=== PATIENT | male | born 1955 | race Caucasian/White ===

== ENCOUNTER 2018-06-24 10:53 | Emergency (ER) | payer MEDICAID ==
[~2018-06-24] VITALS: Ht 172.7 cm; Wt 102.5 kg
[2018-06-24 10:53] VITALS: BP_SYST 127
[2018-06-24] MEDS ORDERED: IPRATROPIUM/ALBUTEROL SULFATE 3 ML AMPUL.NEB (DUONEB) INH STA (11:04)
[2018-06-24] MEDS ORDERED: ALBUTEROL SULFATE 0.083% 2.5 MG/3 ML VIAL.NEB INH ONE (11:15)
[2018-06-24] MEDS ORDERED: ALBUTEROL SULFATE 0.083% 2.5 MG/3 ML VIAL.NEB INH SCH (11:15)
[2018-06-24] MEDS ORDERED: LEVOFLOXACIN 500 MG/D5W 100 ML IV ONE (11:15)
[2018-06-24 11:29] LABS: BASOPHILS # (AUTO) 0.1 K/uL (0.0-0.2); BASOPHILS % (AUTO) 0.6 % (0.0-2.0); EOSINOPHILS # (AUTO) 1.2 K/uL (0.0-0.4); EOSINOPHILS % (AUTO) 8.3 % (0.0-4.0); HEMATOCRIT 45.8 % (36-54); HEMOGLOBIN 15.2 g/dL (14.0-18.0); LYMPHOCYTES # (AUTO) 2.3 K/uL (1.0-5.5); LYMPHOCYTES % (AUTO) 15.8 % (20.5-51.5); MEAN CORPUSCULAR HEMOGLOBIN 29 pg (27-31); MEAN CORPUSCULAR HGB CONC 33 % (32-36); MEAN CORPUSCULAR VOLUME 88 fL (79.0-98.0); MONOCYTES # (AUTO) 1.2 K/uL (0.0-1.0); MONOCYTES % (AUTO) 8.1 % (1.7-9.3); NEUTROPHILS # (AUTO) 9.5 K/uL (1.8-7.7); NEUTROPHILS % (AUTO) 67.2 % (40.0-70.0); PLATELET COUNT (AUTO) 337 K/uL (130-430); RED BLOOD CELL COUNT(AUTO) 5.18 MIL/uL (4.2-6.2); RED CELL DISTRIBUTION WIDTH 14.6 % (9.0-15.0); WHITE BLOOD COUNT (AUTO) 14.3 K/uL (4.8-10.8)
[2018-06-24 11:48] LABS: CALCIUM 9.3 mg/dL (8.4-11.0); POTASSIUM 4.2 mmol/L (3.5-5.1)
[2018-06-24 11:54] LABS: ALBUMIN 3.4 g/dL (3.4-4.8); TOTAL BILIRUBIN 0.5 mg/dL (0.0-1.0)
[2018-06-24 11:58] LABS: INR 0.9 (0.80-1.20); PROTHROMBIN TIME 9.7 SECS (9.5-12.5)
[2018-06-24] MEDS ORDERED: methylPREDNISolone SOD SUCC/PF 62.5 MG/ML VIAL IVP ONE (12:15)
[2018-06-24 13:18] VITALS: BP_SYST 104
== END 2018-06-24 13:17 | disposition home or self-care (01) ==
LOC: SED 10:53
DX: J44.9 Chronic obstructive pulmonary disease, unspecified (principal); I10 Essential (primary) hypertension; F17.200 Nicotine dependence, unspecified, uncomplicated; Z86.79 Personal history of other diseases of the circulatory system
CPT/HCPCS: 36415; 71045; 80053; 83605; 83880; 84484; 85025; 85610; 86710; 87040; 93005; 94640; 96365; 96375; 99284; J1956; J2930; J7613

== ENCOUNTER 2018-09-13 00:44 | Emergency (ER) | payer MEDICAID ==
[~2018-09-13] VITALS: Ht 175.3 cm; Wt 90.7 kg
[2018-09-13 00:45] VITALS: BP_SYST 129
--- NOTE | 2018-09-13 00:45 | NUR ---
Placed in room 8 . Placed on monitoring specialist, blood pressure machine and pulse oximeter.
--- NOTE | 2018-09-13 00:45 | NUR ---
Patient to ER via triage for evaluation of SOB, patient denies CP. Patient is awake, alert and oriented in mild to moderate distress, patient able to ambulate to bed 8 without difficulty with slow, steady gait. Patient placed on morgue technician which shows sinus rhythm without ectopy, patient on BP monitor and pulse oximeter. Awaiting evaluation by ER MD, will continue to observe and assess.
--- NOTE | 2018-09-13 00:47 | NUR ---
JEROME Mccall at bedside examining patient.
[2018-09-13] MEDS ORDERED: IPRATROPIUM/ALBUTEROL SULFATE 3 ML AMPUL.NEB (DUONEB) INH ONE (01:00)
[2018-09-13] MEDS ORDERED: methylPREDNISolone SOD SUCC/PF 62.5 MG/ML VIAL IM ONE (01:00)
--- NOTE | 2018-09-13 01:14 | NUR ---
X-ray at bedside for films
[2018-09-13] MEDS ORDERED: BUDESONIDE 0.5 MG/2 ML AMPUL.NEB INH ONE (01:15)
[2018-09-13 01:32] LABS: CALCIUM 8.9 mg/dL (8.4-11.0); CREATININE 0.92 mg/dL (0.55-1.30)
[2018-09-13 01:37] LABS: ALBUMIN 3.6 g/dL (3.4-4.8); TOTAL BILIRUBIN 0.3 mg/dL (0.0-1.0)
--- NOTE | 2018-09-13 01:45 | NUR ---
Patient resting quietly in no acute distress, respirations even and unlabored, skin warm and dry to touch. Patient reports that breathing is easier after treatments.
[2018-09-13 01:49] LABS: HEMATOCRIT 47.9 % (36-54); HEMOGLOBIN 15.8 g/dL (14.0-18.0); LYMPHOCYTES % (AUTO) 17.3 % (20.5-51.5); MEAN CORPUSCULAR HEMOGLOBIN 28 pg (27-31); MEAN CORPUSCULAR HGB CONC 33 % (32-36); MEAN CORPUSCULAR VOLUME 85 fL (79.0-98.0); NEUTROPHILS % (AUTO) 57.4 % (40.0-70.0); PLATELET COUNT (AUTO) 340 K/uL (130-430); RED BLOOD CELL COUNT(AUTO) 5.65 MIL/uL (4.2-6.2); RED CELL DISTRIBUTION WIDTH 15.8 % (9.0-15.0); WHITE BLOOD COUNT (AUTO) 12.9 K/uL (4.8-10.8)
[2018-09-13 01:50] LABS: BASOPHILS # (AUTO) 0.1 K/uL (0.0-0.2); BASOPHILS % (AUTO) 0.8 % (0.0-2.0); EOSINOPHILS # (AUTO) 2.2 K/uL (0.0-0.4); EOSINOPHILS % (AUTO) 17.1 % (0.0-4.0); LYMPHOCYTES # (AUTO) 2.2 K/uL (1.0-5.5); MONOCYTES % (AUTO) 7.4 % (1.7-9.3); NEUTROPHILS # (AUTO) 7.4 K/uL (1.8-7.7)
[2018-09-13] MEDS ORDERED: LEVOFLOXACIN 500 MG TABLET PO ONE (02:00)
--- NOTE | 2018-09-13 02:23 | NUR ---
Patient given written and verbal discharge instructions and verbalizes understanding. ER MD discussed with patient the results and treatment provided. Patient in stable condition. ID arm band removed. IV catheter removed intact and dressing applied, no active bleeding. Rx of Prednisone,Levaquin given. Patient educated on pain management and to follow up with PMD. Pain Scale 0/10. Opportunity for questions provided and answered. Medication side effect fact sheet provided.
[2018-09-13 02:24] VITALS: BP_SYST 129
== END 2018-09-13 02:24 | disposition home or self-care (01) ==
LOC: SED 00:44
DX: J44.1 Chronic obstructive pulmonary disease with (acute) exacerbation (principal); F17.210 Nicotine dependence, cigarettes, uncomplicated; I10 Essential (primary) hypertension
CPT/HCPCS: 36415; 71045; 80053; 83880; 85025; 93005; 94640; 96372; 99284; J2930; J7620; J7626

== ENCOUNTER 2018-10-11 14:17 | Inpatient (IN) | payer MEDICAID ==
[~2018-10-11] VITALS: Ht 172.7 cm; Wt 106.6 kg
[2018-10-11 14:32] VITALS: BP_SYST 112
[2018-10-11 14:56] LABS: HEMOGLOBIN 15.7 g/dL (14.0-18.0); MEAN CORPUSCULAR HEMOGLOBIN 28 pg (27-31); MEAN CORPUSCULAR HGB CONC 34 % (32-36); MEAN CORPUSCULAR VOLUME 84 fL (79.0-98.0); PLATELET COUNT (AUTO) 395 K/uL (130-430); RED CELL DISTRIBUTION WIDTH 16.3 % (9.0-15.0)
[2018-10-11 14:57] LABS: BASOPHILS # (AUTO) 0.1 K/uL (0.0-0.2); BASOPHILS % (AUTO) 0.9 % (0.0-2.0); EOSINOPHILS # (AUTO) 1.2 K/uL (0.0-0.4); EOSINOPHILS % (AUTO) 9.6 % (0.0-4.0); LYMPHOCYTES # (AUTO) 2.1 K/uL (1.0-5.5); LYMPHOCYTES % (AUTO) 17.3 % (20.5-51.5); MONOCYTES % (AUTO) 8.2 % (1.7-9.3); NEUTROPHILS # (AUTO) 7.7 K/uL (1.8-7.7)
[2018-10-11 15:10] LABS: INR 0.9 (0.80-1.20); PROTHROMBIN TIME 9.5 SECS (9.5-12.5)
[2018-10-11 15:11] LABS: CALCIUM 9.6 mg/dL (8.4-11.0); CREATININE 0.83 mg/dL (0.55-1.30); POTASSIUM 3.7 mmol/L (3.5-5.1)
[2018-10-11 15:16] LABS: ALBUMIN 3.8 g/dL (3.4-4.8); TOTAL BILIRUBIN 0.5 mg/dL (0.0-1.0)
[2018-10-11] MEDS ORDERED: cefTRIAXone 1 GM IVPB PREMIX 50 ML IV ONE (15:45)
[2018-10-11] MEDS ORDERED: IOHEXOL 350 mgI/mL, 150 ML INFUS..BTL IV ONE (16:11)
[2018-10-11] MEDS ORDERED: SODIUM CHLORIDE 500 MG TABLET PO ONE (16:45)
[2018-10-11] MEDS ORDERED: IPRATROPIUM/ALBUTEROL SULFATE 3 ML AMPUL.NEB (DUONEB) INH ONE (17:15)
[2018-10-11 20:39] VITALS: BP_SYST 115
[2018-10-11] MEDS ORDERED: SIMV20TA2 PO (20:47)
[2018-10-11] MEDS ORDERED: FURO20TA4 PO (20:47)
[2018-10-11] MEDS ORDERED: FURO-150 PO (20:47)
[2018-10-11] MEDS ORDERED: ENAL10TA PO (20:47)
[2018-10-11] MEDS ORDERED: CARV25TA55 PO (20:47)
[2018-10-11] MEDS ORDERED: POTA20TA83 PO (20:47)
[2018-10-11] MEDS ORDERED: HYDROcodone/ACETAMIN 5-325 MG TAB (NORCO/ VICODIN) PO PRN (22:00)
[2018-10-11] MEDS ORDERED: HYDROcodone/ACETAMIN 10-325 MG TAB PO PRN (22:00)
[2018-10-11] MEDS ORDERED: cefTRIAXone 1 GM in D5W 50 ML IV SCH (22:00)
[2018-10-11] MEDS ORDERED: ONDANSETRON HCL 4 MG/2 ML VIAL IVP PRN (22:00)
[2018-10-11] MEDS ORDERED: ACETAMINOPHEN 325 MG TABLET PO PRN (22:00)
[2018-10-11] MEDS: D5NS 1,000 ML IV SCH (23:07)
[2018-10-12] MEDS: LORazepam 2 MG/ML VIAL IVP PRN ×2 (00:55→20:45)
[2018-10-12 01:14] VITALS: BP_SYST 134
[2018-10-12] MEDS: IPRATROPIUM/ALBUTEROL SULFATE 3 ML AMPUL.NEB (DUONEB) INH PRN (04:18)
[2018-10-12 04:38] VITALS: BP_SYST 134
[2018-10-12 05:08] LABS: BILIRUBIN,URINE NEGATIVE (NEGATIVE); BLOOD, URINE NEGATIVE (NEGATIVE); CLARITY/URINE CLEAR (CLEAR); COLOR,URINE YELLOW (YELLOW); GLUCOSE,URINE NEGATIVE (NEGATIVE); KETONES,URINE NEGATIVE (NEGATIVE); LEUKOCYTE ESTERASE ,URINE NEGATIVE (NEGATIVE); NITRITE, URINE NEGATIVE (NEGATIVE); PROTEIN URINE TRACE (NEGATIVE)
[2018-10-12 07:21] LABS: CALCIUM 9.2 mg/dL (8.4-11.0); CREATININE 0.75 mg/dL (0.55-1.30)
[2018-10-12 07:36] LABS: ALBUMIN 3.4 g/dL (3.4-4.8); PHOSPHORUS 3.1 mg/dL (2.7-4.5); TOTAL BILIRUBIN 0.5 mg/dL (0.0-1.0)
[2018-10-12 07:57] VITALS: BP_SYST 124
[2018-10-12 08:27] LABS: WHITE BLOOD COUNT (AUTO) 10.2 K/uL (4.8-10.8)
[2018-10-12 08:28] LABS: BASOPHILS # (AUTO) 0.1 K/uL (0.0-0.2); BASOPHILS % (AUTO) 1.2 % (0.0-2.0); HEMATOCRIT 44.6 % (36-54); LYMPHOCYTES # (AUTO) 1.7 K/uL (1.0-5.5); LYMPHOCYTES % (AUTO) 16.7 % (20.5-51.5); MEAN CORPUSCULAR HEMOGLOBIN 28 pg (27-31); MEAN CORPUSCULAR HGB CONC 34 % (32-36); MEAN CORPUSCULAR VOLUME 84 fL (79.0-98.0); MONOCYTES % (AUTO) 9.6 % (1.7-9.3); NEUTROPHILS # (AUTO) 6.3 K/uL (1.8-7.7); NEUTROPHILS % (AUTO) 62.5 % (40.0-70.0); PLATELET COUNT (AUTO) 327 K/uL (130-430); RED BLOOD CELL COUNT(AUTO) 5.29 MIL/uL (4.2-6.2); RED CELL DISTRIBUTION WIDTH 16.4 % (9.0-15.0)
[2018-10-12] MEDS: FUROSEMIDE 20 MG TABLET PO SCH (08:39)
[2018-10-12] MEDS: POTASSIUM CHLORIDE 20 MEQ TAB.PRT.SR PO SCH ×2 (08:39→20:44)
[2018-10-12] MEDS: ENALAPRIL MALEATE 10 MG TABLET (VASOTEC) PO SCH ×2 (08:40→20:44)
[2018-10-12] MEDS: CARVEDILOL 25 MG TABLET (COREG) PO SCH ×2 (08:40→20:44)
[2018-10-12] MEDS: methylPREDNISolone SOD SUCC 40 MG/ML VIAL IVP SCH ×2 (08:41→20:43)
[2018-10-12] MEDS: cefTRIAXone 1 GM in D5W 50 ML IV SCH (08:41)
[2018-10-12] MEDS: D5NS 1,000 ML IV SCH ×2 (08:56→20:43)
[2018-10-12 12:09] VITALS: BP_SYST 124
[2018-10-12] MEDS: AZITHROMYCIN 500 MG in NS 250 ML IV SCH (12:17)
[2018-10-12] MEDS ORDERED: IOHEXOL 350 mgI/mL, 150 ML INFUS..BTL IV ONE (14:15)
[2018-10-12 16:34] VITALS: BP_SYST 117
[2018-10-12] MEDS ORDERED: FUROSEMIDE 20 MG TABLET PO SCH (18:00)
[2018-10-12 20:00] VITALS: BP_SYST 111
[2018-10-12] MEDS ORDERED: SIMVASTATIN 20 MG TABLET PO SCH (21:00)
[2018-10-13] VITALS: BP_SYST 118
[2018-10-13 07:14] VITALS: BP_SYST 112
[2018-10-13] MEDS: IPRATROPIUM/ALBUTEROL SULFATE 3 ML AMPUL.NEB (DUONEB) INH PRN (07:29)
[2018-10-13 08:18] LABS: C-REACTIVE PROTEIN QUANT 1.4 mg/dL (0-0.5); CREATININE 0.82 mg/dL (0.55-1.30); POTASSIUM 4.3 mmol/L (3.5-5.1)
[2018-10-13] MEDS: CARVEDILOL 25 MG TABLET (COREG) PO SCH (09:02)
[2018-10-13] MEDS: FUROSEMIDE 20 MG TABLET PO SCH (09:04)
[2018-10-13] MEDS: ENALAPRIL MALEATE 10 MG TABLET (VASOTEC) PO SCH (09:05)
[2018-10-13] MEDS: POTASSIUM CHLORIDE 20 MEQ TAB.PRT.SR PO SCH (09:05)
[2018-10-13] MEDS: methylPREDNISolone SOD SUCC 40 MG/ML VIAL IVP SCH (09:12)
[2018-10-13] MEDS: AZITHROMYCIN 500 MG in NS 250 ML IV SCH (09:12)
[2018-10-13] MEDS: cefTRIAXone 1 GM in D5W 50 ML IV SCH (09:12)
[2018-10-13 10:57] LABS: HEMATOCRIT 44.3 % (36-54); HEMOGLOBIN 14.5 g/dL (14.0-18.0); MEAN CORPUSCULAR HEMOGLOBIN 28 pg (27-31); MEAN CORPUSCULAR HGB CONC 33 % (32-36); MEAN CORPUSCULAR VOLUME 85 fL (79.0-98.0); PLATELET COUNT (AUTO) 352 K/uL (130-430); RED BLOOD CELL COUNT(AUTO) 5.21 MIL/uL (4.2-6.2); RED CELL DISTRIBUTION WIDTH 16.4 % (9.0-15.0); WHITE BLOOD COUNT (AUTO) 15.7 K/uL (4.8-10.8)
[2018-10-13 10:58] LABS: BASOPHILS % (AUTO) 0.1 % (0.0-2.0); LYMPHOCYTES # (AUTO) 0.9 K/uL (1.0-5.5); LYMPHOCYTES % (AUTO) 5.8 % (20.5-51.5); MONOCYTES # (AUTO) 0.8 K/uL (0.0-1.0); MONOCYTES % (AUTO) 4.9 % (1.7-9.3); NEUTROPHILS % (AUTO) 89.2 % (40.0-70.0)
[2018-10-13 11:21] VITALS: BP_SYST 125
[2018-10-13 11:27] VITALS: BP_SYST 112
[2018-10-13 11:36] LABS: ERYTHROCYTE SEDIMENTATION RATE 7 MM/HR (0-15)
[2018-10-13] MEDS ORDERED: AZIT500T3 PO (13:44)
[2018-10-13 14:04] VITALS: BP_SYST 114
[2018-10-13] MEDS ORDERED: PRED20TA PO (14:11)
[2018-10-13] MEDS ORDERED: PRED10TA PO (14:12)
== END 2018-10-13 14:00 | disposition home or self-care (01) | DRG 133 ==
LOC: SED 14:17 → STU 19:29
PROVIDERS: ADMIT Preventive Medicine Preventive Medicine/Occupational Environmental Medicine; ATTEND Preventive Medicine Preventive Medicine/Occupational Environmental Medicine
DX: J96.00 Acute respiratory failure, unspecified whether with hypoxia or hypercapnia (principal); J18.9 Pneumonia, unspecified organism; I11.0 Hypertensive heart disease with heart failure; I50.9 Heart failure, unspecified; E87.1 Hypo-osmolality and hyponatremia; J44.0 Chronic obstructive pulmonary disease with (acute) lower respiratory infection; R16.0 Hepatomegaly, not elsewhere classified; R65.10 Systemic inflammatory response syndrome (SIRS) of non-infectious origin without acute organ dysfunction; E78.5 Hyperlipidemia, unspecified; I25.10 Atherosclerotic heart disease of native coronary artery without angina pectoris; J44.1 Chronic obstructive pulmonary disease with (acute) exacerbation; K80.20 Calculus of gallbladder without cholecystitis without obstruction; E66.9 Obesity, unspecified; T38.0X5A Adverse effect of glucocorticoids and synthetic analogues, initial encounter; Z82.49 Family history of ischemic heart disease and other diseases of the circulatory system; Z87.891 Personal history of nicotine dependence; Z68.35 Body mass index [BMI] 35.0-35.9, adult
CPT/HCPCS: 36415; 71045; 71275; 76700-TC; 80048; 80053; 81003; 82550-TC; 83735-TC; 83880; 84100-TC; 84484; 85025; 85379; 85610-TC; 85651-TC; 86140; 86738; 87040-TC; 87086; 87449; 93005; 94640; 94760; 96365; 99285; G0378; J0456; J0696; J1030; J2060; J7042; J7050; J7060; J7620; Q9967

== ENCOUNTER 2019-04-05 00:14 | Emergency (ER) | payer MEDICAID ==
[~2019-04-05] VITALS: Ht 172.7 cm; Wt 97.5 kg
[~2019-04-05 00:14] MED LIST: AZIT500T3 PO; CARV25TA55 PO; ENAL10TA PO; FURO-150 PO; FURO20TA4 PO; POTA20TA83 PO; PRED10TA PO; PRED20TA PO; SIMV20TA2 PO
[2019-04-05 00:16] VITALS: BP_SYST 106
--- NOTE | 2019-04-05 00:17 | NUR ---
Placed in room 3 . Placed on quantitative researcher, blood pressure machine and pulse oximeter. To gown for exam. Side rails up. Report given to [facility] [employer].
--- NOTE | 2019-04-05 00:25 | NUR ---
Dr. Rock at bedside for Pt eval
--- NOTE | 2019-04-05 00:35 | NUR ---
Pt BIB family to ED C/O shortness of breath. Pt has been short of breath for the past 24 hours. He also has a cough or congestion. He denies any pleuritic chest pain. Pt states that his cough is dry. He has a history of congestive heart failure and COPD. Pt has no abdominal pain, nausea, vomiting or diarrhea. He states that his shortness of breath is getting progressively worse. No other injuries and or complaints noted. VSS no s/s of acute distress. Resting on gurney rails up
--- NOTE | 2019-04-05 00:39 | NUR ---
Portable X Ray bedside, well tolerated
[2019-04-05] MEDS ORDERED: FUROSEMIDE 40 MG/4 ML VIAL IVP ONE (00:45)
[2019-04-05] MEDS ORDERED: IPRATROPIUM/ALBUTEROL SULFATE 3 ML AMPUL.NEB (DUONEB) INH ONE (00:45)
[2019-04-05] MEDS ORDERED: VANCOMYCIN HCL 1,000 MG in NS 250 ML IV ONE (00:45)
[2019-04-05] MEDS ORDERED: methylPREDNISolone SOD SUCC/PF 62.5 MG/ML VIAL IVP ONE (00:45)
[2019-04-05] MEDS ORDERED: LEVOFLOXACIN 500 MG/D5W 100 ML IV ONE (00:45)
[2019-04-05] MEDS ORDERED: MAGNESIUM SULFATE 1 GM in NS 100 ML IV ONE (00:45)
--- NOTE | 2019-04-05 00:51 | NUR ---
RT bedside for ABG blood draw
[2019-04-05] MEDS ORDERED: VANCOMYCIN HCL 1000 MG/VIAL IV ONE (01:08)
[2019-04-05] MEDS ORDERED: MAGNESIUM SULFATE 1 GM/2 ML VIAL ONE (01:09)
[2019-04-05 01:13] LABS: BASOPHILS # (AUTO) 0.1 K/uL (0.0-0.2); BASOPHILS % (AUTO) 0.4 % (0.0-2.0); EOSINOPHILS # (AUTO) 0.7 K/uL (0.0-0.4); EOSINOPHILS % (AUTO) 4.3 % (0.0-4.0); HEMATOCRIT 41.1 % (36-54); HEMOGLOBIN 14.1 g/dL (14.0-18.0); LYMPHOCYTES # (AUTO) 1.5 K/uL (1.0-5.5); LYMPHOCYTES % (AUTO) 9.2 % (20.5-51.5); MEAN CORPUSCULAR HEMOGLOBIN 30 pg (27-31); MEAN CORPUSCULAR HGB CONC 34 % (32-36); MEAN CORPUSCULAR VOLUME 86 fL (79.0-98.0); MONOCYTES # (AUTO) 1.9 K/uL (0.0-1.0); MONOCYTES % (AUTO) 11.8 % (1.7-9.3); NEUTROPHILS % (AUTO) 74.3 % (40.0-70.0); PLATELET COUNT (AUTO) 340 K/uL (130-430); RED BLOOD CELL COUNT(AUTO) 4.76 MIL/uL (4.2-6.2); RED CELL DISTRIBUTION WIDTH 15.1 % (9.0-15.0); WHITE BLOOD COUNT (AUTO) 16.2 K/uL (4.8-10.8)
--- NOTE | 2019-04-05 01:29 | NUR ---
Medication reconciliation completed with information provided by PT. Any prior medication reconciliation on file was reviewed and corrected.
[2019-04-05 01:31] LABS: ALBUMIN 3.1 g/dL (3.4-4.8); CREATININE 0.95 mg/dL (0.55-1.30); POTASSIUM 3.8 mmol/L (3.5-5.1); TOTAL BILIRUBIN 0.5 mg/dL (0.0-1.0)
[2019-04-05 01:32] LABS: CALCIUM 8.4 mg/dL (8.4-11.0)
--- NOTE | 2019-04-05 02:30 | NUR ---
Patient does not wish to proceed with medical care recommended by . Patient given information related to possible complications, up to and including , which could occur as a result of leaving hospital at this time. Patient verbalizes understanding of risks involved leaving against medical advice. Patient has signed AMA form.
== END 2019-04-05 02:30 | disposition left against medical advice (07) ==
LOC: SED 00:14
DX: A41.9 Sepsis, unspecified organism (principal); I11.0 Hypertensive heart disease with heart failure; I50.9 Heart failure, unspecified; J44.1 Chronic obstructive pulmonary disease with (acute) exacerbation; J18.9 Pneumonia, unspecified organism; Z79.899 Other long term (current) drug therapy
CPT/HCPCS: 36415; 36600; 71045; 80053; 82550; 82803; 83605; 83880; 84484; 85025; 87040; 93005; 94640; 96365; 96368; 96375; 99291; J1940; J1956; J2930; J3370; J3475; J7620

== ENCOUNTER 2019-09-24 15:18 | Inpatient (IN) | payer MEDICAID ==
[~2019-09-24] VITALS: Ht 172.7 cm; Wt 99.3 kg
[~2019-09-24 15:18] MED LIST changes: -AZIT500T3 PO; -PRED10TA PO
[2019-09-24 15:28] VITALS: BP_SYST 141
[2019-09-24] MEDS ORDERED: NACL 0.9% 1,000 ML IV ONE (15:38)
[2019-09-24] MEDS ORDERED: ASPIRIN 81 MG TAB.CHEW PO ONE (15:45)
[2019-09-24 16:29] LABS: BASOPHILS # (AUTO) 0.1 K/uL (0.0-0.2); BASOPHILS % (AUTO) 0.8 % (0.0-2.0); EOSINOPHILS # (AUTO) 0.8 K/uL (0.0-0.4); EOSINOPHILS % (AUTO) 5.2 % (0.0-4.0); HEMATOCRIT 46.8 % (36-54); HEMOGLOBIN 15.5 g/dL (14.0-18.0); LYMPHOCYTES # (AUTO) 1.8 K/uL (1.0-5.5); LYMPHOCYTES % (AUTO) 12.5 % (20.5-51.5); MEAN CORPUSCULAR HEMOGLOBIN 28 pg (27-31); MEAN CORPUSCULAR HGB CONC 33 % (32-36); MEAN CORPUSCULAR VOLUME 85 fL (79.0-98.0); MONOCYTES # (AUTO) 1.2 K/uL (0.0-1.0); MONOCYTES % (AUTO) 8.2 % (1.7-9.3); NEUTROPHILS # (AUTO) 10.7 K/uL (1.8-7.7); NEUTROPHILS % (AUTO) 73.3 % (40.0-70.0); PLATELET COUNT (AUTO) 300 K/uL (130-430); RED BLOOD CELL COUNT(AUTO) 5.49 MIL/uL (4.2-6.2); RED CELL DISTRIBUTION WIDTH 15.7 % (9.0-15.0); WHITE BLOOD COUNT (AUTO) 14.6 K/uL (4.8-10.8)
[2019-09-24 16:39] LABS: ANION GAP 5 (5-15); CALCIUM 9.4 mg/dL (8.4-11.0); CHLORIDE 88 mmol/L (98-107); CREATININE 0.79 mg/dL (0.55-1.30); GLUCOSE 101 mg/dL (70-99); SODIUM SERUM 122 mmol/L (136-145); UREA NITROGEN, BLOOD 12 mg/dL (8-21)
[2019-09-24 16:40] LABS: GFR AFRICAN AMERICAN 128 mL/min (>90)
[2019-09-24 16:46] LABS: ALANINE AMINOTRANSFERASE 38 U/L (12-78); ALBUMIN 3.7 g/dL (3.4-4.8); AMYLASE 48 U/L (0-100); ASPARTATE AMINOTRANSFERASE 21 U/L (10-37); CHOLESTEROL 109 mg/dL (<200); HDL CHOLESTEROL 39 mg/dL (>45); LDL CHOLESTEROL 60 mg/dL (<100); LIPASE 74 U/L (73-393); TOTAL BILIRUBIN 0.7 mg/dL (0.0-1.0); TRIGLYCERIDES 81 mg/dL (30-150)
[2019-09-24 16:48] LABS: ALCOHOL, BLOOD < 3 mg/dL (<10)
[2019-09-24 18:07] LABS: CHOL/HDL RATIO 2.8 (>4.5)
[2019-09-24 18:25] LABS: BILIRUBIN,URINE NEGATIVE (NEGATIVE); BLOOD, URINE NEGATIVE (NEGATIVE); CLARITY/URINE CLEAR (CLEAR); COLOR,URINE YELLOW (YELLOW); GLUCOSE,URINE NEGATIVE (NEGATIVE); KETONES,URINE NEGATIVE (NEGATIVE); LEUKOCYTE ESTERASE ,URINE NEGATIVE (NEGATIVE); NITRITE, URINE NEGATIVE (NEGATIVE); PROTEIN URINE TRACE (NEGATIVE); UROBILINOGEN,URINE 0.2 (0.2-1.0)
[2019-09-24 18:34] LABS: BARBITURATE, URINE NEGATIVE (NEG <=200); BENZODIAZEPINE, URINE NEGATIVE (NEG <=150); CANNABINOID, URINE POSITIVE (NEG <=50); COCAINE, URINE NEGATIVE (NEG <=150); METHAMPHETAMINES SCREEN,URINE NEGATIVE (NEG <=500); OPIATE, URINE NEGATIVE (NEG <=100); PHENCYCLIDINE SCREEN,URINE NEGATIVE (NEG <=25); UR TRICYCLIC ANTIDEPRESSANTS NEGATIVE (NEG <=300); URINE AMPHETAMINE NEGATIVE (NEG <=500); URINE METHADONE NEGATIVE (NEG <=200); URINE OXYCODONE SCREEN NEGATIVE (NEG <=100); URINE PROPOXYPHENE SCREEN NEGATIVE (NEG <=300)
[2019-09-24 18:45] LABS: RBC,URINE NONE SEEN /HPF (0-3); WBC,URINE 0-3 /HPF (0-3)
[2019-09-24 18:46] LABS: BACTERIA,URINE None Seen /HPF (None Seen); MUCUS,URINE None Seen /LPF (None Seen)
[2019-09-24 21:32] VITALS: BP_SYST 139
[2019-09-24] MEDS ORDERED: ONDANSETRON HCL 4 MG/2 ML VIAL IVP PRN (23:15)
[2019-09-24] MEDS ORDERED: ACETAMINOPHEN 325 MG TABLET PO PRN (23:15)
[2019-09-24] MEDS ORDERED: cefTRIAXone 1 GM IVPB PREMIX 50 ML IV ONE (23:30)
[2019-09-24] MEDS ORDERED: ASPIRIN 325 MG TABLET PO ONE (23:30)
[2019-09-25] VITALS: BP_SYST 135
[2019-09-25] MEDS: ALBUTEROL SULFATE 0.083% 2.5 MG/3 ML VIAL.NEB INH PRN ×2 (00:14→04:45)
[2019-09-25 00:15] VITALS: BP_SYST 135
[2019-09-25] MEDS ORDERED: IOHEXOL 350 mgI/mL, 150 ML INFUS..BTL IV ONE (00:18)
[2019-09-25] MEDS ORDERED: cefTRIAXone 1 GM IVPB PREMIX 50 ML IV ONE (00:21)
[2019-09-25] MEDS: NACL 0.9% 1,000 ML IV SCH ×3 (01:05→22:23)
[2019-09-25] MEDS: MORPHINE 2 MG/ML INJ. SYRINGE IVP PRN (01:07)
[2019-09-25] MEDS: MORPHINE 4 MG/ML INJ. SYRINGE IVP PRN (05:22)
[2019-09-25 06:36] LABS: BASOPHILS # (AUTO) 0.1 K/uL (0.0-0.2); BASOPHILS % (AUTO) 0.5 % (0.0-2.0); EOSINOPHILS # (AUTO) 0.4 K/uL (0.0-0.4); EOSINOPHILS % (AUTO) 3.2 % (0.0-4.0); HEMATOCRIT 45.7 % (36-54); HEMOGLOBIN 14.9 g/dL (14.0-18.0); LYMPHOCYTES # (AUTO) 1.5 K/uL (1.0-5.5); MEAN CORPUSCULAR HEMOGLOBIN 28 pg (27-31); MEAN CORPUSCULAR HGB CONC 33 % (32-36); MEAN CORPUSCULAR VOLUME 85 fL (79.0-98.0); MONOCYTES # (AUTO) 1.1 K/uL (0.0-1.0); MONOCYTES % (AUTO) 8.2 % (1.7-9.3); NEUTROPHILS # (AUTO) 10.6 K/uL (1.8-7.7); NEUTROPHILS % (AUTO) 77.1 % (40.0-70.0); PLATELET COUNT (AUTO) 275 K/uL (130-430); RED BLOOD CELL COUNT(AUTO) 5.35 MIL/uL (4.2-6.2); RED CELL DISTRIBUTION WIDTH 15.2 % (9.0-15.0); WHITE BLOOD COUNT (AUTO) 13.8 K/uL (4.8-10.8)
[2019-09-25 06:43] LABS: ALBUMIN 3.5 g/dL (3.4-4.8); CALCIUM 9.2 mg/dL (8.4-11.0); CREATININE 0.67 mg/dL (0.55-1.30); POTASSIUM 3.6 mmol/L (3.5-5.1); TOTAL BILIRUBIN 0.9 mg/dL (0.0-1.0)
[2019-09-25 08:00] VITALS: BP_SYST 135
[2019-09-25] MEDS: ASPIRIN 325 MG TABLET PO SCH (08:20)
[2019-09-25 12:00] VITALS: BP_SYST 156
[2019-09-25] MEDS ORDERED: ENALAPRIL MALEATE (VASOTEC) Non-Formular 10 MG TABLET PO ONE (13:15)
[2019-09-25] MEDS ORDERED: PREDNISONE 20 MG TABLET PO ONE (13:15)
[2019-09-25] MEDS ORDERED: CARVEDILOL 25 MG TABLET (COREG) PO ONE (13:15)
[2019-09-25 16:49] VITALS: BP_SYST 127
[2019-09-25] MEDS: FUROSEMIDE 20 MG TABLET PO SCH (17:54)
[2019-09-25 19:57] VITALS: BP_SYST 145
[2019-09-25] MEDS: SIMVASTATIN 20 MG TABLET PO SCH (22:17)
[2019-09-25] MEDS: POTASSIUM CHLORIDE 20 MEQ TAB.PRT.SR PO SCH (22:18)
[2019-09-25] MEDS: ENALAPRIL MALEATE (VASOTEC) Non-Formular 10 MG TABLET PO SCH (22:18)
[2019-09-25] MEDS: CARVEDILOL 25 MG TABLET (COREG) PO SCH (22:19)
[2019-09-26] VITALS: BP_SYST 116
[2019-09-26] MEDS: NACL 0.9% 1,000 ML IV SCH ×2 (06:43→16:43)
[2019-09-26 06:49] LABS: BASOPHILS # (AUTO) 0.1 K/uL (0.0-0.2); BASOPHILS % (AUTO) 0.5 % (0.0-2.0); EOSINOPHILS # (AUTO) 0.1 K/uL (0.0-0.4); EOSINOPHILS % (AUTO) 0.6 % (0.0-4.0); HEMATOCRIT 43.4 % (36-54); HEMOGLOBIN 14.5 g/dL (14.0-18.0); LYMPHOCYTES # (AUTO) 1.9 K/uL (1.0-5.5); LYMPHOCYTES % (AUTO) 14.9 % (20.5-51.5); MEAN CORPUSCULAR HEMOGLOBIN 29 pg (27-31); MEAN CORPUSCULAR HGB CONC 33 % (32-36); MEAN CORPUSCULAR VOLUME 86 fL (79.0-98.0); MONOCYTES # (AUTO) 1.3 K/uL (0.0-1.0); MONOCYTES % (AUTO) 10.1 % (1.7-9.3); NEUTROPHILS # (AUTO) 9.2 K/uL (1.8-7.7); NEUTROPHILS % (AUTO) 73.9 % (40.0-70.0); PLATELET COUNT (AUTO) 279 K/uL (130-430); RED BLOOD CELL COUNT(AUTO) 5.08 MIL/uL (4.2-6.2); RED CELL DISTRIBUTION WIDTH 15.7 % (9.0-15.0); WHITE BLOOD COUNT (AUTO) 12.5 K/uL (4.8-10.8)
[2019-09-26] MEDS: MORPHINE 4 MG/ML INJ. SYRINGE IVP PRN (06:51)
[2019-09-26 06:52] LABS: CALCIUM 9.1 mg/dL (8.4-11.0); CREATININE 0.68 mg/dL (0.55-1.30); POTASSIUM 3.9 mmol/L (3.5-5.1)
[2019-09-26 08:01] VITALS: BP_SYST 146
[2019-09-26] MEDS: POTASSIUM CHLORIDE 20 MEQ TAB.PRT.SR PO SCH ×2 (08:34→22:04)
[2019-09-26] MEDS: CARVEDILOL 25 MG TABLET (COREG) PO SCH ×2 (08:35→22:05)
[2019-09-26] MEDS: ASPIRIN 325 MG TABLET PO SCH (08:35)
[2019-09-26] MEDS: PREDNISONE 20 MG TABLET PO SCH (08:35)
[2019-09-26] MEDS: ENALAPRIL MALEATE (VASOTEC) Non-Formular 10 MG TABLET PO SCH ×2 (08:36→22:06)
[2019-09-26] MEDS: FUROSEMIDE 20 MG TABLET PO SCH ×2 (09:52→18:18)
[2019-09-26] MEDS ORDERED: ASPI-1153 PO (11:13)
[2019-09-26] MEDS ORDERED: LIP40 PO (11:13)
[2019-09-26 12:07] VITALS: BP_SYST 153
[2019-09-26 16:30] VITALS: BP_SYST 147
[2019-09-26] MEDS: ALBUTEROL SULFATE 0.083% 2.5 MG/3 ML VIAL.NEB INH PRN (17:12)
[2019-09-26 20:00] VITALS: BP_SYST 154
[2019-09-26] MEDS: SIMVASTATIN 20 MG TABLET PO SCH (22:03)
[2019-09-26] MEDS: MORPHINE 2 MG/ML INJ. SYRINGE IVP PRN (22:19)
[2019-09-27] MEDS: ALBUTEROL SULFATE 0.083% 2.5 MG/3 ML VIAL.NEB INH PRN ×2 (00:33→06:20)
[2019-09-27 00:53] VITALS: BP_SYST 142
[2019-09-27] MEDS: NACL 0.9% 1,000 ML IV SCH ×2 (01:20→13:22)
[2019-09-27] MEDS: MORPHINE 4 MG/ML INJ. SYRINGE IVP PRN ×3 (03:08→12:38)
[2019-09-27 08:03] VITALS: BP_SYST 155
[2019-09-27] MEDS: PREDNISONE 20 MG TABLET PO SCH (08:26)
[2019-09-27] MEDS: FUROSEMIDE 20 MG TABLET PO SCH (08:26)
[2019-09-27] MEDS: ASPIRIN 325 MG TABLET PO SCH (08:26)
[2019-09-27] MEDS: CARVEDILOL 25 MG TABLET (COREG) PO SCH (08:27)
[2019-09-27] MEDS: POTASSIUM CHLORIDE 20 MEQ TAB.PRT.SR PO SCH (08:27)
[2019-09-27] MEDS: ENALAPRIL MALEATE (VASOTEC) Non-Formular 10 MG TABLET PO SCH (08:31)
[2019-09-27 12:30] VITALS: BP_SYST 111
[2019-09-27 15:48] VITALS: BP_SYST 138
== END 2019-09-27 16:40 | disposition home or self-care (01) | DRG 48 ==
LOC: SED 15:18 → SMU 19:13 → SED 21:14 → STU 23:35
PROVIDERS: ADMIT Internal Medicine; ATTEND Internal Medicine
DX: G51.0 Bell's palsy (principal); E87.1 Hypo-osmolality and hyponatremia; I11.0 Hypertensive heart disease with heart failure; E87.8 Other disorders of electrolyte and fluid balance, not elsewhere classified; I50.9 Heart failure, unspecified; J44.9 Chronic obstructive pulmonary disease, unspecified; I25.10 Atherosclerotic heart disease of native coronary artery without angina pectoris; Z82.49 Family history of ischemic heart disease and other diseases of the circulatory system
CPT/HCPCS: 36415; 70450-TC; 70496; 70498; 70551; 71045; 80048; 80053; 80061; 80307; 81000-TC; 82150-TC; 82550-TC; 82962; 83690-TC; 84484; 85025; 85730-TC; 87040-TC; 93005; 93306; 94640; 94760; 96360; 96361; 97110-GP; 97116-GP; 99285; G0378; G0481; G0482; J0696; J2270; J2405; J7030; J7512; J7613; Q9967

== ENCOUNTER 2019-11-28 06:20 | Emergency (ER) | payer MEDICAID ==
[~2019-11-28] VITALS: Ht 172.7 cm; Wt 102.1 kg
[2019-11-28 06:20] VITALS: BP_SYST 124
[~2019-11-28 06:20] MED LIST changes: +ASPI-1153 PO; +LIP40 PO; -SIMV20TA2 PO
--- NOTE | 2019-11-28 06:20 | NUR ---
Pt ambulatory to bed 7 for evaluation. Hooked to continuous monitor
--- NOTE | 2019-11-28 06:22 | NUR ---
Patient came to ER. C/O Shortness of Breath x today. Patient states "started Shortness of Breath around 2100 , used IH meds at 02 , no relief. " Hx COPD and CHF. A/O,X4, Dyspnea, Bilateral wheezing, Oxygen sat 92 % RA.
[2019-11-28] MEDS ORDERED: ALBUTEROL SULFATE 0.083% 2.5 MG/3 ML VIAL.NEB INH ONE ×3 (06:30→09:00)
[2019-11-28] MEDS ORDERED: IPRATROPIUM BROM 0.5 MG/2.5 ML VIAL.NEB (ATROVENT) INH ONE ×3 (06:30→09:00)
[2019-11-28] MEDS ORDERED: methylPREDNISolone SOD SUCC/PF 62.5 MG/ML VIAL IVP ONE (06:30)
--- NOTE | 2019-11-28 06:30 | NUR ---
ER Dr. Mccarthy at bedside examining patient.
--- NOTE | 2019-11-28 06:40 | NUR ---
RT at bedside for Breathing Treatment.
--- NOTE | 2019-11-28 06:50 | NUR ---
X-ray at bedside.
[2019-11-28 07:15] LABS: BASOPHILS # (AUTO) 0.1 K/uL (0.0-0.2); BASOPHILS % (AUTO) 0.6 % (0.0-2.0); EOSINOPHILS # (AUTO) 0.7 K/uL (0.0-0.4); EOSINOPHILS % (AUTO) 4.6 % (0.0-4.0); HEMATOCRIT 49.4 % (36-54); HEMOGLOBIN 16.6 g/dL (14.0-18.0); LYMPHOCYTES # (AUTO) 1.7 K/uL (1.0-5.5); LYMPHOCYTES % (AUTO) 11.5 % (20.5-51.5); MEAN CORPUSCULAR HEMOGLOBIN 28 pg (27-31); MEAN CORPUSCULAR HGB CONC 34 % (32-36); MEAN CORPUSCULAR VOLUME 84 fL (79.0-98.0); MONOCYTES # (AUTO) 0.9 K/uL (0.0-1.0); MONOCYTES % (AUTO) 6.2 % (1.7-9.3); NEUTROPHILS # (AUTO) 11.4 K/uL (1.8-7.7); NEUTROPHILS % (AUTO) 77.1 % (40.0-70.0); PLATELET COUNT (AUTO) 365 K/uL (130-430); RED BLOOD CELL COUNT(AUTO) 5.86 MIL/uL (4.2-6.2); RED CELL DISTRIBUTION WIDTH 16.3 % (9.0-15.0); WHITE BLOOD COUNT (AUTO) 14.8 K/uL (4.8-10.8)
[2019-11-28] MEDS ORDERED: AMLO2.5T2 PO (07:24)
--- NOTE | 2019-11-28 07:27 | NUR ---
REASSESSMENT; PATIENT STATES MARGINAL IMPROVEMENT IN SYMPTOMS; STATES HE NO LONGER TAKES ASPIRIN NOR LIPITOR; (ON MED REC); FULL HEAD TO TOE ASSESSMENT; PATIENT IS OTHERWISE UNCHANGED; DECREASED BS AND CONGESTED COUGH; ABG RA AND DISPOSITION PENDING
--- NOTE | 2019-11-28 07:30 | NUR ---
PATIENT PLACED ON OXYGEN 2LM NC
[2019-11-28 07:38] LABS: CREATININE 0.94 mg/dL (0.55-1.30); POTASSIUM 3.9 mmol/L (3.5-5.1)
[2019-11-28 07:44] LABS: ALBUMIN 3.7 g/dL (3.4-4.8)
[2019-11-28 08:07] LABS: TOTAL BILIRUBIN 0.5 mg/dL (0.0-1.0)
--- NOTE | 2019-11-28 08:49 | NUR ---
REASSESSMENT; PATIENT STATES HIS SYMPTOMS ARE RESOLVED AND HE IS EUPNEIC; DISPOSITION PENDING
[2019-11-28 09:10] VITALS: BP_SYST 108
--- NOTE | 2019-11-28 09:13 | NUR ---
REASSESSMENT BY DAYNA; PATIENT IMPROVED; PREPARATIONS TO DISCHARGE
--- NOTE | 2019-11-28 09:37 | NUR ---
DPatient given written and verbal discharge instructions and verbalizes understanding. ER MD discussed with patient the results and treatment provided. Patient in stable condition. ID arm band removed. IV catheter removed intact and dressing applied, no active bleeding. Rx of PREDNISONE, AZITHROMYCIN, ALBUTEROL given. Patient educated on pain management and to follow up with PMD. Pain Scale . Opportunity for questions provided and answered. Medication side effect fact sheet provided.
[2019-11-29 10:59] LABS: PROTHROMBIN TIME 9.9 SECS (9.5-12.5)
== END 2019-11-28 09:10 | disposition home or self-care (01) ==
LOC: SED 06:20
DX: J45.901 Unspecified asthma with (acute) exacerbation (principal); I11.0 Hypertensive heart disease with heart failure; I50.9 Heart failure, unspecified; F17.200 Nicotine dependence, unspecified, uncomplicated; Z86.73 Personal history of transient ischemic attack (TIA), and cerebral infarction without residual deficits; Z79.899 Other long term (current) drug therapy; Z79.82 Long term (current) use of aspirin
CPT/HCPCS: 36415; 36600; 71045; 80053; 82803; 83605; 83880; 84484; 85025; 85379; 85610; 85730; 87040; 93005; 94640; 96365; 96375; 99285; J1956; J2930; J7613

== ENCOUNTER 2019-12-09 01:22 | Emergency (ER) | payer MEDICAID ==
[~2019-12-09] VITALS: Ht 172.7 cm; Wt 102.1 kg
[2019-12-09 01:22] VITALS: BP_SYST 150
[~2019-12-09 01:22] MED LIST changes: +AMLO2.5T2 PO; -PRED20TA PO
--- NOTE | 2019-12-09 01:22 | NUR ---
Patient to ER bed 7 to gown for evaluation. Side rails up. ASSUMED CARE OF PT.
--- NOTE | 2019-12-09 01:23 | NUR ---
PT AAO AND AMBULATORY REPORTING WORSENING SOB TODAY. PT SPEAKING IN FULL SENTENCES AND V/S STABLE.
--- NOTE | 2019-12-09 01:50 | NUR ---
ER Dr. TEMPLE at bedside examining patient.
[2019-12-09] MEDS ORDERED: IPRATROPIUM/ALBUTEROL SULFATE 3 ML AMPUL.NEB (DUONEB) INH ONE (02:00)
--- NOTE | 2019-12-09 02:40 | NUR ---
LABS DRAWN AND SENT
--- NOTE | 2019-12-09 02:50 | NUR ---
PT REPORTS IMPROVED SOB FOLLOWING BREATHING TREATMENT. PT RESTING QUIETLY IN NO DISTRESS.
--- NOTE | 2019-12-09 03:04 | NUR ---
REPORT GIVEN TO CHELSEA FIERRO ASSUMING CARE.
[2019-12-09 03:26] LABS: BASOPHILS # (AUTO) 0.1 K/uL (0.0-0.2); BASOPHILS % (AUTO) 0.6 % (0.0-2.0); EOSINOPHILS # (AUTO) 0.3 K/uL (0.0-0.4); EOSINOPHILS % (AUTO) 1.6 % (0.0-4.0); HEMATOCRIT 45.6 % (36-54); HEMOGLOBIN 15.2 g/dL (14.0-18.0); LYMPHOCYTES # (AUTO) 1.5 K/uL (1.0-5.5); LYMPHOCYTES % (AUTO) 8.4 % (20.5-51.5); MEAN CORPUSCULAR HEMOGLOBIN 29 pg (27-31); MEAN CORPUSCULAR HGB CONC 33 % (32-36); MEAN CORPUSCULAR VOLUME 86 fL (79.0-98.0); MONOCYTES # (AUTO) 1.2 K/uL (0.0-1.0); MONOCYTES % (AUTO) 6.6 % (1.7-9.3); NEUTROPHILS # (AUTO) 14.6 K/uL (1.8-7.7); NEUTROPHILS % (AUTO) 82.8 % (40.0-70.0); PLATELET COUNT (AUTO) 321 K/uL (130-430); RED BLOOD CELL COUNT(AUTO) 5.31 MIL/uL (4.2-6.2); RED CELL DISTRIBUTION WIDTH 16.3 % (9.0-15.0); WHITE BLOOD COUNT (AUTO) 17.6 K/uL (4.8-10.8)
[2019-12-09] MEDS ORDERED: MAG HYDROX/AL HYDROX/SIMETH 30 ML, DICYCLOMINE HCL 20 MG, LIDOCAINE VISCOUS 2% 15ML (PO... PO ONE ×3 (03:30)
[2019-12-09] MEDS ORDERED: KETOROLAC TROMETHAMINE 30 MG VIAL IM ONE (03:30)
[2019-12-09] MEDS ORDERED: KETOROLAC TROMETHAMINE 30 MG VIAL IVP ONE (03:30)
[2019-12-09 03:40] LABS: ANION GAP 5 (5-15); CHLORIDE 95 mmol/L (98-107); CREATININE 0.93 mg/dL (0.55-1.30); GLUCOSE 131 mg/dL (70-99); POTASSIUM 3.7 mmol/L (3.5-5.1); SODIUM SERUM 131 mmol/L (136-145); UREA NITROGEN, BLOOD 9 mg/dL (8-21)
[2019-12-09 03:47] LABS: ALANINE AMINOTRANSFERASE 43 U/L (12-78); ALBUMIN 3.5 g/dL (3.4-4.8); ASPARTATE AMINOTRANSFERASE 25 U/L (10-37); LIPASE 56 U/L (73-393); TOTAL BILIRUBIN 0.7 mg/dL (0.0-1.0)
--- NOTE | 2019-12-09 03:47 | NUR ---
Medications well tolerated. Pt states " I feel a bit better."
[2019-12-09 03:48] LABS: GFR AFRICAN AMERICAN 106 mL/min (>90)
[2019-12-09 04:30] VITALS: BP_SYST 142
--- NOTE | 2019-12-09 04:30 | NUR ---
Patient given written and verbal discharge instructions and verbalizes understanding. ER MD discussed with patient the results and treatment provided. Patient in stable condition. ID arm band removed. Rx of Mylanta given. Patient educated on pain management and to follow up with PMD. Pain Scale 0/10 Opportunity for questions provided and answered. Medication side effect fact sheet provided.
== END 2019-12-09 04:30 | disposition home or self-care (01) ==
LOC: SED 01:22
DX: J44.9 Chronic obstructive pulmonary disease, unspecified (principal); R10.13 Epigastric pain; I10 Essential (primary) hypertension; Z86.73 Personal history of transient ischemic attack (TIA), and cerebral infarction without residual deficits; Z79.899 Other long term (current) drug therapy; Z79.82 Long term (current) use of aspirin
CPT/HCPCS: 36415; 36600; 71045; 80053; 82803; 83690; 84484; 85025; 93005; 94640; 96372; 99285; J1885; J2001

== ENCOUNTER 2019-12-18 18:09 | Emergency (ER) | payer MEDICAID ==
[~2019-12-18] VITALS: Ht 172.7 cm; Wt 90.7 kg
[2019-12-18 18:10] VITALS: BP_SYST 135
[2019-12-18] MEDS ORDERED: NACL 0.9% 1,000 ML IV ONE (18:12)
[2019-12-18] MEDS ORDERED: IPRATROPIUM BROM 0.5 MG/2.5 ML VIAL.NEB (ATROVENT) INH ONE ×2 (18:15→19:15)
[2019-12-18] MEDS ORDERED: ALBUTEROL SULFATE 0.083% 2.5 MG/3 ML VIAL.NEB INH ONE ×2 (18:15→19:15)
[2019-12-18] MEDS ORDERED: methylPREDNISolone SOD SUCC/PF 62.5 MG/ML VIAL IVP ONE (18:15)
[2019-12-18 20:00] VITALS: BP_SYST 130
== END 2019-12-18 20:00 | disposition home or self-care (01) ==
LOC: SED 18:09
DX: J44.1 Chronic obstructive pulmonary disease with (acute) exacerbation (principal); I11.0 Hypertensive heart disease with heart failure; I50.9 Heart failure, unspecified; Z86.73 Personal history of transient ischemic attack (TIA), and cerebral infarction without residual deficits; Z79.899 Other long term (current) drug therapy; Z79.82 Long term (current) use of aspirin
CPT/HCPCS: 36600; 71045; 93005; 94640; 96374; 99285; J2930; J7613; 82803-TC

== ENCOUNTER 2020-01-14 17:36 | Emergency (ER) | payer MEDICAID ==
[~2020-01-14] VITALS: Ht 172.7 cm; Wt 90.7 kg
[2020-01-14 17:42] VITALS: BP_SYST 136
--- NOTE | 2020-01-14 17:42 | NUR ---
PT AAO AND AMBULATORY C/O SUDDEN ONSET SOB, SPO2 NOTED AT 90%. PT BROUGHT BACK TO HALLWAY, PLACED ON MONITOR.
--- NOTE | 2020-01-14 18:25 | NUR ---
ER at bedside examining patient.
[2020-01-14] MEDS ORDERED: ALBUTEROL MDI INHALATION 8 GM INH INH ONE (18:30)
[2020-01-14] MEDS ORDERED: PREDNISONE 20 MG TABLET PO ONE (19:30)
--- NOTE | 2020-01-14 19:38 | NUR ---
Pt moved to bed 2, patient for breathing treatment
--- NOTE | 2020-01-14 19:43 | NUR ---
RT at bedside for Breathing treatment.
[2020-01-14] MEDS ORDERED: IPRATROPIUM BROM 0.5 MG/2.5 ML VIAL.NEB (ATROVENT) INH ONE (19:57)
[2020-01-14] MEDS ORDERED: ALBUTEROL SULFATE 0.083% 2.5 MG/3 ML VIAL.NEB INH ONE (19:58)
[2020-01-14 20:20] VITALS: BP_SYST 136
--- NOTE | 2020-01-14 20:20 | NUR ---
Patient given written and verbal discharge instructions and verbalizes understanding. DR. GERALDINE CANO MD discussed with patient the results and treatment provided. Patient in stable condition. ID arm band removed. Rx of PREDNISONE AND ALBUTEROL given. Patient educated on pain management and to follow up with PMD. Pain Scale 0/10. Opportunity for questions provided and answered. Medication side effect fact sheet provided.
== END 2020-01-14 20:20 | disposition home or self-care (01) ==
LOC: SED 17:36
DX: J44.1 Chronic obstructive pulmonary disease with (acute) exacerbation (principal); I10 Essential (primary) hypertension; Z86.73 Personal history of transient ischemic attack (TIA), and cerebral infarction without residual deficits; Z79.899 Other long term (current) drug therapy; Z79.82 Long term (current) use of aspirin
CPT/HCPCS: 71045; 94640; 99283; J7512; J7613; 99285

== ENCOUNTER 2020-01-25 20:58 | Emergency (ER) | payer MEDICAID, SELFPAY ==
[~2020-01-25] VITALS: Ht 167.6 cm; Wt 93.0 kg
[2020-01-25 21:00] VITALS: BP_SYST 132
--- NOTE | 2020-01-25 21:10 | NUR ---
Patient to ER bed 2 to gown for evaluation. Side rails up.
--- NOTE | 2020-01-25 21:15 | NUR ---
ORTHOTIC/PROSTHETIC CLINICIAN at bedside with patient
--- NOTE | 2020-01-25 21:20 | NUR ---
Pt C/O SOB x 4 hours. Pt has hx of COPD and CHF, O2 saturation 91-92%. Pt is tripoding, accessory muscle use observed. Pt placed to bed 2, MD Stovall at bedside.
[2020-01-25] MEDS ORDERED: IPRATROPIUM BROM 0.5 MG/2.5 ML VIAL.NEB (ATROVENT) INH ONE (21:30)
[2020-01-25] MEDS ORDERED: methylPREDNISolone SOD SUCC/PF 62.5 MG/ML VIAL IVP ONE (21:30)
[2020-01-25] MEDS ORDERED: ALBUTEROL SULFATE 0.083% 2.5 MG/3 ML VIAL.NEB INH ONE (21:30)
[2020-01-25] MEDS ORDERED: IPRATROPIUM/ALBUTEROL SULFATE 3 ML AMPUL.NEB (DUONEB) ONE (21:34)
[2020-01-25 21:39] LABS: BASOPHILS # (AUTO) 0.1 K/uL (0.0-0.2); BASOPHILS % (AUTO) 0.7 % (0.0-2.0); EOSINOPHILS # (AUTO) 0.8 K/uL (0.0-0.4); EOSINOPHILS % (AUTO) 4.8 % (0.0-4.0); HEMOGLOBIN 14.9 g/dL (14.0-18.0); LYMPHOCYTES # (AUTO) 2.9 K/uL (1.0-5.5); LYMPHOCYTES % (AUTO) 18.6 % (20.5-51.5); MEAN CORPUSCULAR HEMOGLOBIN 29 pg (27-31); MEAN CORPUSCULAR HGB CONC 33 % (32-36); MEAN CORPUSCULAR VOLUME 88 fL (79.0-98.0); MONOCYTES # (AUTO) 1.3 K/uL (0.0-1.0); MONOCYTES % (AUTO) 8.3 % (1.7-9.3); NEUTROPHILS # (AUTO) 10.7 K/uL (1.8-7.7); NEUTROPHILS % (AUTO) 67.6 % (40.0-70.0); PLATELET COUNT (AUTO) 316 K/uL (130-430); RED BLOOD CELL COUNT(AUTO) 5.13 MIL/uL (4.2-6.2); RED CELL DISTRIBUTION WIDTH 15.2 % (9.0-15.0); WHITE BLOOD COUNT (AUTO) 15.8 K/uL (4.8-10.8)
[2020-01-25 21:55] LABS: PROTHROMBIN TIME 9.6 SECS (9.5-12.5)
[2020-01-25 21:59] LABS: CALCIUM 9.2 mg/dL (8.4-11.0); CREATININE 0.96 mg/dL (0.55-1.30); POTASSIUM 3.9 mmol/L (3.5-5.1)
[2020-01-25 22:17] LABS: TOTAL BILIRUBIN 0.5 mg/dL (0.0-1.0)
[2020-01-25 22:18] LABS: ALBUMIN 3.7 g/dL (3.4-4.8); C-REACTIVE PROTEIN QUANT 1.9 mg/dL (0-0.5)
--- NOTE | 2020-01-25 22:20 | NUR ---
Pt reports breathing is easier, O2 saturation is within normal range. Will continue to monitor.
[2020-01-25] MEDS ORDERED: AZITHROMYCIN 250 MG TABLET PO ONE (22:30)
[2020-01-25] MEDS ORDERED: cefTRIAXone 1 GM in D5W 50 ML IV ONE (22:30)
[2020-01-25] MEDS ORDERED: MAGNESIUM SULFATE 50 ML IV ONE (22:30)
[2020-01-25] MEDS ORDERED: cefTRIAXone 1 GM VIAL ONE ×2 (22:51)
--- NOTE | 2020-01-25 23:36 | NUR ---
Patient given written and verbal discharge instructions and verbalizes understanding. ER MD discussed with patient the results and treatment provided. Patient in stable condition. ID arm band removed. IV catheter removed intact and dressing applied, no active bleeding. Rx of Prednisone and Doxycycline given. Patient educated on pain management and to follow up with PMD. Pain Scale 0/10. Opportunity for questions provided and answered. Medication side effect fact sheet provided.
[2020-01-25 23:47] VITALS: BP_SYST 134
== END 2020-01-25 23:47 | disposition home or self-care (01) ==
LOC: SED 20:58
DX: J44.1 Chronic obstructive pulmonary disease with (acute) exacerbation (principal); I11.0 Hypertensive heart disease with heart failure; I50.9 Heart failure, unspecified; F17.210 Nicotine dependence, cigarettes, uncomplicated; Z79.899 Other long term (current) drug therapy; Z79.82 Long term (current) use of aspirin; Z71.6 Tobacco abuse counseling
CPT/HCPCS: 36415; 36600; 71045; 80053; 82550; 82728; 82803; 83615; 83880; 84484; 85025; 85384; 85610; 85730; 86140; 87040; 93005; 94640; 96365; 96368; 96375; 99285; J0696; J2930; J3475; J7613; Q0144; 85379

== ENCOUNTER 2020-04-30 08:09 | Emergency (ER) | payer MEDICAID, SELFPAY ==
[~2020-04-30] VITALS: Ht 172.7 cm; Wt 74.8 kg
[2020-04-30 08:09] VITALS: BP_SYST 141
[~2020-04-30 08:09] MED LIST changes: -ASPI-1153 PO; +ASPI-1393 PO; -ENAL10TA PO; +ENAL10TA19 PO
--- NOTE | 2020-04-30 08:09 | NUR ---
Placed in room 8. Placed on monitor and storage bin tender, blood pressure machine and pulse oximeter. To gown for exam. Side rails up. Report given to CHELSEA Maguire.
--- NOTE | 2020-04-30 08:22 | NUR ---
EKG performed at BS by RN. Physician given copy of EKG for review.
[2020-04-30] MEDS ORDERED: MAGNESIUM SULFATE 50 ML IV ONE (08:30)
[2020-04-30] MEDS ORDERED: IPRATROPIUM/ALBUTEROL SULFATE 3 ML AMPUL.NEB (DUONEB) INH ONE (08:30)
[2020-04-30] MEDS ORDERED: methylPREDNISolone SOD SUCC/PF 62.5 MG/ML VIAL IVP ONE (08:30)
--- NOTE | 2020-04-30 08:43 | NUR ---
Respiratory at bedside for breathing treatment as ordered by MD.
--- NOTE | 2020-04-30 08:57 | NUR ---
Pt alert and oriented. Sitting up in [facility]. On oxygen and receiving respiratory therapy. Refused rapid Covid swab. made aware.
[2020-04-30 08:59] LABS: BASOPHILS # (AUTO) 0.1 K/uL (0.0-0.2); BASOPHILS % (AUTO) 0.6 % (0.0-2.0); EOSINOPHILS # (AUTO) 0.4 K/uL (0.0-0.4); EOSINOPHILS % (AUTO) 3.5 % (0.0-4.0); HEMATOCRIT 45.1 % (36-54); LYMPHOCYTES # (AUTO) 1.4 K/uL (1.0-5.5); LYMPHOCYTES % (AUTO) 12.4 % (20.5-51.5); MEAN CORPUSCULAR HEMOGLOBIN 29 pg (27-31); MEAN CORPUSCULAR HGB CONC 33 % (32-36); MEAN CORPUSCULAR VOLUME 87 fL (79.0-98.0); MONOCYTES % (AUTO) 8.5 % (1.7-9.3); NEUTROPHILS # (AUTO) 8.7 K/uL (1.8-7.7); PLATELET COUNT (AUTO) 312 K/uL (130-430); RED BLOOD CELL COUNT(AUTO) 5.16 MIL/uL (4.2-6.2); RED CELL DISTRIBUTION WIDTH 14.9 % (9.0-15.0); WHITE BLOOD COUNT (AUTO) 11.6 K/uL (4.8-10.8)
--- NOTE | 2020-04-30 09:25 | NUR ---
pt is alert and oriented. stated that he feels better and wants to return home.
[2020-04-30 09:56] LABS: CALCIUM 9.2 mg/dL (8.4-11.0); CREATININE 0.8 mg/dL (0.55-1.30); POTASSIUM 3.9 mmol/L (3.5-5.1)
[2020-04-30 10:01] LABS: ALBUMIN 3.8 g/dL (3.4-4.8); TOTAL BILIRUBIN 0.7 mg/dL (0.0-1.0)
--- NOTE | 2020-04-30 10:48 | NUR ---
Patient given written and verbal discharge instructions and verbalizes understanding. ER MD discussed with patient the results and treatment provided. Patient in stable condition. ID arm band removed. IV catheter removed intact and dressing applied, no active bleeding. Rx of prednisone, Albuterol inhaler given. Patient educated on pain management and to follow up with PMD. Pain Scale 0/10. Opportunity for questions provided and answered. Medication side effect fact sheet provided.
[2020-04-30 10:49] VITALS: BP_SYST 139
== END 2020-04-30 10:49 | disposition home or self-care (01) ==
LOC: SED 08:09
DX: J44.1 Chronic obstructive pulmonary disease with (acute) exacerbation (principal); I11.0 Hypertensive heart disease with heart failure; I50.9 Heart failure, unspecified; Z79.899 Other long term (current) drug therapy; Z79.82 Long term (current) use of aspirin; Z20.828 Contact with and (suspected) exposure to other viral communicable diseases
CPT/HCPCS: 36415; 36600; 71045; 80053; 82803; 83880; 85025; 87040; 87426; 93005; 94640; 96365; 96366; 96375; 99285; J2930; J3475

== ENCOUNTER 2020-12-21 10:13 | Emergency (ER) | payer MEDICAID, SELFPAY ==
[~2020-12-21] VITALS: Ht 172.7 cm; Wt 74.8 kg
[2020-12-21 10:15] VITALS: BP_SYST 121
[2020-12-21] MEDS ORDERED: ALBUTEROL SULFATE 0.083% 2.5 MG/3 ML VIAL.NEB INH ONE ×3 (10:38→10:45)
[2020-12-21] MEDS ORDERED: MORPHINE SULFATE 10 MG/ML VIAL IM ONE (10:45)
[2020-12-21] MEDS ORDERED: predniSONE 20 MG TABLET PO ONE (10:45)
[2020-12-21 11:10] LABS: BASOPHILS # (AUTO) 0.1 K/uL (0.0-0.2); BASOPHILS % (AUTO) 0.4 % (0.0-2.0); EOSINOPHILS # (AUTO) 0.3 K/uL (0.0-0.4); EOSINOPHILS % (AUTO) 2.2 % (0.0-4.0); HEMATOCRIT 47.2 % (36-54); LYMPHOCYTES # (AUTO) 3.1 K/uL (1.0-5.5); LYMPHOCYTES % (AUTO) 20.3 % (20.5-51.5); MEAN CORPUSCULAR HEMOGLOBIN 30 pg (27-31); MEAN CORPUSCULAR HGB CONC 34 % (32-36); MEAN CORPUSCULAR VOLUME 88 fL (79.0-98.0); MONOCYTES # (AUTO) 1.5 K/uL (0.0-1.0); MONOCYTES % (AUTO) 9.7 % (1.7-9.3); NEUTROPHILS # (AUTO) 10.3 K/uL (1.8-7.7); NEUTROPHILS % (AUTO) 67.4 % (40.0-70.0); PLATELET COUNT (AUTO) 347 K/uL (130-430); RED BLOOD CELL COUNT(AUTO) 5.38 MIL/uL (4.2-6.2); RED CELL DISTRIBUTION WIDTH 14.7 % (9.0-15.0); WHITE BLOOD COUNT (AUTO) 15.3 K/uL (4.8-10.8)
[2020-12-21 11:28] LABS: CALCIUM 9.4 mg/dL (8.4-11.0); CREATININE 0.87 mg/dL (0.55-1.30); POTASSIUM 3.7 mmol/L (3.5-5.1)
[2020-12-21] MEDS ORDERED: ONDANSETRON 4 MG ODT TAB PO ONE (11:30)
[2020-12-21 11:39] LABS: ALBUMIN 3.8 g/dL (3.4-4.8); TOTAL BILIRUBIN 1.1 mg/dL (0.0-1.0)
[2020-12-21] MEDS ORDERED: PRED20TA PO (13:16)
[2020-12-21] MEDS ORDERED: CYCL-10 PO (13:16)
[2020-12-21] MEDS ORDERED: ALBMDI INH (13:16)
[2020-12-21 13:24] VITALS: BP_SYST 124
== END 2020-12-21 13:26 | disposition home or self-care (01) ==
LOC: SED 10:13
DX: S39.012A Strain of muscle, fascia and tendon of lower back, initial encounter (principal); J44.1 Chronic obstructive pulmonary disease with (acute) exacerbation; I11.0 Hypertensive heart disease with heart failure; I50.9 Heart failure, unspecified; F17.290 Nicotine dependence, other tobacco product, uncomplicated; Z79.82 Long term (current) use of aspirin; Z79.899 Other long term (current) drug therapy; X50.9XXA Other and unspecified overexertion or strenuous movements or postures, initial encounter; Y93.89 Activity, other specified; Y92.89 Other specified places as the place of occurrence of the external cause; Y99.8 Other external cause status
CPT/HCPCS: 36415; 71045; 72100; 80053; 83880; 84484; 85025; 93005; 94640; 96372; 99285; J2270; J7512; J7613; Q0162

== ENCOUNTER 2022-06-01 20:59 | Emergency (ER) | payer MEDICARE, MEDICAID ==
[~2022-06-01] VITALS: Ht 172.7 cm; Wt 92.1 kg
[~2022-06-01 20:59] MED LIST changes: +ALBMDI INH; +CYCL10TA24 PO; +POTA-197 PO; -POTA20TA83 PO; +PRED20TA PO
[2022-06-01 21:35] VITALS: BP_SYST 142
--- NOTE | 2022-06-01 22:00 | NUR ---
RESP THERAPY BEDSIDE WITH PT. THERAPY
[2022-06-01] MEDS ORDERED: predniSONE 20 MG TABLET PO ONE (22:30)
[2022-06-01] MEDS ORDERED: ALBUTEROL SULFATE 0.083% 2.5 MG/3 ML VIAL.NEB INH ONE (22:30)
[2022-06-01] MEDS ORDERED: IPRATROPIUM BROM 0.5 MG/2.5 ML VIAL.NEB (ATROVENT) INH ONE (22:30)
--- NOTE | 2022-06-01 22:35 | NUR ---
ER at bedside examining patient.
[2022-06-01 22:51] LABS: EOSINOPHILS # (AUTO) 0.4 K/uL (0.0-0.4); MONOCYTES # (AUTO) 1.4 K/uL (0.0-1.0); MONOCYTES % (AUTO) 10.2 % (1.7-9.3)
[2022-06-01 23:07] LABS: CALCIUM 9.8 mg/dL (8.4-11.0); CHLORIDE 95 mmol/L (98-107); CREATININE 1.05 mg/dL (0.55-1.30); GLUCOSE 107 mg/dL (70-99); UREA NITROGEN, BLOOD 10 mg/dL (8-21)
[2022-06-01 23:10] LABS: BASOPHILS % (AUTO) 0.3 % (0.0-2.0); HEMATOCRIT 45.2 % (36-54); HEMOGLOBIN 15.4 g/dL (14.0-18.0); LYMPHOCYTES # (AUTO) 0.5 K/uL (1.0-5.5); LYMPHOCYTES % (AUTO) 3.6 % (20.5-51.5); MEAN CORPUSCULAR HEMOGLOBIN 29 pg (27-31); MEAN CORPUSCULAR HGB CONC 34 % (32-36); MEAN CORPUSCULAR VOLUME 85 fL (79.0-98.0); NEUTROPHILS # (AUTO) 11.3 K/uL (1.8-7.7); NEUTROPHILS % (AUTO) 82.9 % (40.0-70.0); PLATELET COUNT (AUTO) 243 K/uL (130-430); RED BLOOD CELL COUNT(AUTO) 5.31 MIL/uL (4.2-6.2); RED CELL DISTRIBUTION WIDTH 14.8 % (9.0-15.0); WHITE BLOOD COUNT (AUTO) 13.6 K/uL (4.8-10.8)
[2022-06-01 23:12] LABS: ALANINE AMINOTRANSFERASE 19 U/L (12-78); ALBUMIN 3.7 g/dL (3.4-4.8); ASPARTATE AMINOTRANSFERASE 22 U/L (10-37); TOTAL BILIRUBIN 0.5 mg/dL (0.0-1.0)
[2022-06-01 23:25] LABS: GFR AFRICAN AMERICAN 91 mL/min (>90)
[2022-06-01 23:26] LABS: ANION GAP < 3 (5-15)
[2022-06-02 00:37] LABS: CREATININE 0.92 mg/dL (0.55-1.30)
[2022-06-02] MEDS ORDERED: cefTRIAXone 1 GM in D5W 50 ML IV ONE (01:15)
[2022-06-02] MEDS ORDERED: IPRATROPIUM BROM 0.5 MG/2.5 ML VIAL.NEB (ATROVENT) INH ONE (01:15)
[2022-06-02] MEDS ORDERED: NACL 0.9% 1,000 ML IV ONE (01:15)
[2022-06-02] MEDS ORDERED: ALBUTEROL SULFATE 0.083% 2.5 MG/3 ML VIAL.NEB INH ONE (01:15)
--- NOTE | 2022-06-02 02:43 | NUR ---
COVID/FLU SWAB DROPPED OFF AT LAB AT 2:39
--- NOTE | 2022-06-02 03:00 | NUR ---
Blood Cx x 2 sets obtained prior to antibiotic administration.
[2022-06-02] MEDS ORDERED: cefTRIAXone 1 GM VIAL ONE (03:03)
--- NOTE | 2022-06-02 04:32 | NUR ---
Pt informed that he is COVID +. Pt states that he wants to leave and go home. Dr. Vidales made aware. Pt signs AMA form.
--- NOTE | 2022-06-02 04:32 | NUR ---
PATIENT LEFT AMA, COVID + POSITIVE PATIENT WALKED OUT OF THE UNIT, GAIT STEADY, VITAL SIGNS BP154/67, HR 88, RR20, 57LML22 2LN/C, TEMP98.9
[2022-06-02 04:39] VITALS: BP_SYST 154
== END 2022-06-02 04:39 | disposition left against medical advice (07) ==
LOC: SED 20:59
DX: J44.9 Chronic obstructive pulmonary disease, unspecified (principal); R06.02 Shortness of breath; E87.5 Hyperkalemia; E87.1 Hypo-osmolality and hyponatremia; R05.9 Cough, unspecified; I11.0 Hypertensive heart disease with heart failure; I50.9 Heart failure, unspecified; Z72.0 Tobacco use; Z79.899 Other long term (current) drug therapy; Z20.822 Contact with and (suspected) exposure to COVID-19
CPT/HCPCS: 80053; 80048; 85025; 87040; 84484; 87186; 36415; 93005; 71045; 94640 ×2; 99285; 87804 ×2; 87426; 96365; J7512; J7613 ×2; J0696